=== PATIENT | male | born 1955 | race Two or more races ===

== ENCOUNTER 2020-02-01 07:29 | Emergency (ER) | payer BC, OTHER ==
[~2020-02-01] VITALS: Ht 162.6 cm; Wt 87.5 kg
[2020-02-01 09:59] VITALS: BP 136/72
== END 2020-02-01 10:00 | disposition home or self-care (01) ==
LOC: ER 07:29 → EDBD 07:29 → ER 10:00
DX: G51.0 Bell's palsy (principal); E11.9 Type 2 diabetes mellitus without complications; I10 Essential (primary) hypertension; Z90.49 Acquired absence of other specified parts of digestive tract
CPT/HCPCS: 70450